=== PATIENT | male | born 1980 | race Caucasian/White ===

== ENCOUNTER 2019-01-04 19:20 | Emergency (ER) | payer OTHER ==
[~2019-01-04] VITALS: Ht 180.3 cm; Wt 68.0 kg
[~2019-01-04 19:20] MED LIST: AUGMENTIN 875875 MG PO; FLEXERIL PO; IBUPROFEN 800800 MG PO; NAPROSYN500 MG PO; NOHOMEMEDICATIONS; NORCO 5-325 TA1 EACH PO
[2019-01-04] MEDS ORDERED: IBUPROFEN 600600 M1 PO (21:21)
[2019-01-04] MEDS ORDERED: KEFLEX500 M1 PO (21:21)
[2019-01-04] MEDS ORDERED: HYDROCODONE-AP1 EAC6 PO (21:21)
[2019-01-04 21:35] VITALS: BP 150/93
== END 2019-01-04 22:12 | disposition home or self-care (01) ==
LOC: ER 19:20
DX: S41.112A Laceration without foreign body of left upper arm, initial encounter (principal); X99.1XXA Assault by knife, initial encounter; Y93.89 Activity, other specified; Y92.89 Other specified places as the place of occurrence of the external cause; Y99.8 Other external cause status

== ENCOUNTER 2019-01-14 15:29 | Emergency (ER) | payer OTHER ==
[~2019-01-14] VITALS: Ht 152.4 cm; Wt 63.5 kg
[~2019-01-14 15:29] MED LIST changes: +HYDROCODONE-AP1 EAC6 PO; +IBUPROFEN 600600 M1 PO; +KEFLEX500 M1 PO
[2019-01-14 16:41] VITALS: BP 144/90
== END 2019-01-14 16:41 | disposition home or self-care (01) ==
LOC: ER 15:29
DX: S41.112D Laceration without foreign body of left upper arm, subsequent encounter (principal); X58.XXXD Exposure to other specified factors, subsequent encounter